=== PATIENT | female | born 1985 | race Caucasian/White ===

== ENCOUNTER → 2017-04-27 | Outpatient (CLI) | payer OTHER | LOC: RAD 05:14 | DX: N64.4 Mastodynia (principal); R92.8 Other abnormal and inconclusive findings on diagnostic imaging of breast ==

== ENCOUNTER → 2017-07-05 | Outpatient (CLI) | payer OTHER | LOC: ULTRA 12:29 → RAD 13:35 | DX: N64.52 Nipple discharge (principal) ==